=== PATIENT | male | born 1985 | race Two or more races ===

== ENCOUNTER 2022-10-08 21:00 | Inpatient (IN) | payer MEDICAID, OTHER ==
[~2022-10-08] VITALS: Ht 177.8 cm; Wt 80.9 kg
[2022-10-08 22:11] LABS: BASOPHILS % (AUTO) 0.3 % (0.0-2.0); EOSINOPHILS % (AUTO) 0.4 % (1.0-6.0); HEMATOCRIT 47.9 % (41-53); HEMOGLOBIN 16.2 g/dL (13.5-17.5); LYMPHOCYTES # (AUTO) 2.5 K/uL (1.0-4.8); LYMPHOCYTES % (AUTO) 24.9 % (22.0-44.0); MEAN CORPUSCULAR HEMOGLOBIN 31.3 pg (26.0-34.0); MEAN CORPUSCULAR VOLUME 92 fL (80-100); MONOCYTES # (AUTO) 0.6 K/uL (0.1-1.0); MONOCYTES % (AUTO) 5.9 % (2.0-9.0); NEUTROPHILS # (AUTO) 6.9 K/uL (1.8-7.7); NEUTROPHILS % (AUTO) 68.5 % (40.0-70.0); PLATELET COUNT (AUTO) 252 K/uL (150-450); RED BLOOD CELL COUNT(AUTO) 5.19 MIL/uL (4.50-5.90); RED CELL DISTRIBUTION WIDTH 12.9 % (11.5-14.5)
[2022-10-08 22:20] LABS: ANION GAP 10 mmol/L (8-16); CALCIUM, TOTAL 9.3 mg/dL (8.8-10.5); CARBON DIOXIDE 27 mmol/L (22-29); CHLORIDE 104 mmol/L (98-107); CREATININE 0.97 mg/dL (0.60-1.30); GLOMERULAR FILTR. RATE CALC > 60 mL/min (>60); GLUCOSE,RANDOM 105 mg/dL (70-110); POTASSIUM 3.6 mmol/L (3.5-5.1); SODIUM SERUM 141 mmol/L (136-145); UREA NITROGEN, BLOOD 13 mg/dL (7-18)
[2022-10-08 22:26] LABS: ALANINE AMINOTRANSFERASE 65 U/L (12-78); ALBUMIN 4.4 g/dL (3.4-5.0); ALKALINE PHOSPHATASE 100 U/L (46-116); ASPARTATE AMINOTRANSFERASE 33 U/L (15-37); BILIRUBIN,TOTAL 0.4 mg/dL (0.1-1.0); TOTAL PROTEIN, SERUM 7.9 g/dL (6.4-8.2)
[2022-10-08 22:45] LABS: COVID AG,FIA SOURCE NASAL SWAB
[2022-10-08] MEDS ORDERED: LORazepam 2 MG TABLET PO PRN (23:15)
[2022-10-08] MEDS ORDERED: HALOPERIDOL 5 MG TABLET PO PRN (23:15)
[2022-10-09 16:19] VITALS: BP 112/69
[2022-10-09] MEDS ORDERED: PNEUMOCOCCAL VACCINE POLYVALENT 0.5 ML VIAL [PPSV23] IM. ONE (16:30)
[2022-10-09] MEDS ORDERED: INFLUENZA VIRUS VACCINE QVS 2022-23 (6MO+)/PF 60 MCG/0.5 ML SYRINGE IM. ONE (16:30)
[2022-10-09 17:19] LABS: APPEARANCE,URINE CLEAR (CLEAR); BILIRUBIN,URINE NEGATIVE (NEGATIVE); GLUCOSE, URINE (UA) NEGATIVE (NEGATIVE); KETONES,URINE NEGATIVE (NEGATIVE); LEUKOCYTE ESTERASE ,URINE NEGATIVE (NEGATIVE); NITRATE,URINE NEGATIVE (NEGATIVE); OCCULT BLOOD,URINE NEGATIVE (NEGATIVE); PH,URINE 5.5 (5.0-8.0); PROTEIN,URINE 30-70 mg/dL (NEGATIVE); SPECIFIC GRAVITIY, URINE 1.034 (1.003-1.030); UROBILINOGEN,URINE <=1.0 mg/dL (<=1.0)
[2022-10-09 17:33] LABS: AMPHET/METH SCREEN,URINE NEGATIVE (NEGATIVE); BACTERIA,URINE None Seen /HPF (None Seen); BARBITURATE SCREEN, URINE NEGATIVE (NEGATIVE); BENZODIAZEPINES SCREEN,URINE NEGATIVE (NEGATIVE); CANNABINOID SCREEN,URINE NEGATIVE (NEGATIVE); COCAINE SCREEN,URINE NEGATIVE (NEGATIVE); HYALINE CASTS, URINE 0-2 /LPF (None Seen); METHADONE SCREEN, URINE NEGATIVE (NEGATIVE); OPIATE SCREEN,URINE NEGATIVE (NEGATIVE); RBC,URINE 0-2 /HPF (0-2); SQUAMOUS EPITHELIAL CELL,UR Few /LPF (None Seen); WBC,URINE 0-2 /HPF (0-5)
[2022-10-09 17:36] LABS: PHENCYCLIDINE SCREEN,URINE NEGATIVE (NEGATIVE)
[2022-10-09] MEDS ORDERED: INSULIN LISPRO 100 UNITS/ML SQ PRN (19:30)
[2022-10-09] MEDS ORDERED: DEXTROSE 50%-WATER 25 GM/50 ML SYRINGE IVP PRN (19:30)
[2022-10-09] MEDS ORDERED: INSULIN GLARGINE,HUM.REC.ANLOG 100 UNITS/ML SQ SCH (21:00)
[2022-10-10] MEDS ORDERED: LEVOTHYROXINE SODIUM 100 MCG TABLET PO SCH (07:00)
[2022-10-10] MEDS ORDERED: DOCUSATE SODIUM 100 MG CAPSULE PO PRN (07:00)
[2022-10-10] MEDS ORDERED: GuaiFENesin/D-METHORPHAN [SUGAR-FREE] 200-20MG/10 ML SYRUP UDCUP PO PRN (07:00)
[2022-10-10] MEDS ORDERED: ALBUTEROL SULFATE HFA 90 MCG/PUFF 8 GM INHALER IH PRN (07:00)
[2022-10-10] MEDS ORDERED: CloNIDine HCL 0.1 MG TABLET PO PRN (07:00)
[2022-10-10] MEDS ORDERED: ONDANSETRON HCL 4 MG TABLET PO PRN (07:00)
[2022-10-10] MEDS ORDERED: ACETAMINOPHEN 325 MG TABLET PO PRN (07:00)
[2022-10-10] MEDS ORDERED: MAGNESIUM HYDROXIDE SUSPENSION 30 ML UDCUP PO PRN (07:00)
[2022-10-10] MEDS ORDERED: LOPERAMIDE HCL 2 MG CAPSULE PO PRN (07:00)
[2022-10-10] MEDS ORDERED: MAG HYDROX/AL HYDROX/SIMETH ES 30 ML SUSPENSION UDCUP PO PRN (07:00)
[2022-10-10] MEDS ORDERED: IBUPROFEN 400 MG TABLET PO PRN (07:00)
[2022-10-10] MEDS ORDERED: PETROLATUM,WHITE 28 GM JELLY TP PRN (07:00)
[2022-10-10 09:00] VITALS: BP 106/56
[2022-10-10] MEDS ORDERED: LISINOPRIL 10 MG TABLET PO SCH (09:00)
[2022-10-10] MEDS ORDERED: OMEPRAZOLE 20 MG CAPSULE PO SCH (09:00)
[2022-10-10 16:31] VITALS: BP 110/65
[2022-10-10] MEDS: SERTRALINE HCL 50 MG TABLET PO SCH (17:51)
[2022-10-11 08:30] VITALS: BP 105/65
[2022-10-11] MEDS: SERTRALINE HCL 50 MG TABLET PO SCH (08:31)
[2022-10-11 17:00] VITALS: BP 118/57
[2022-10-12 08:00] VITALS: BP 93/64
[2022-10-12] MEDS: SERTRALINE HCL 50 MG TABLET PO SCH (10:14)
[2022-10-12 16:00] VITALS: BP 133/59
[2022-10-12] MEDS: NICOTINE 14 MG/24 HOUR PATCH TD PRN (17:44)
[2022-10-12] MEDS: ZOLPIDEM TARTRATE 10 MG TABLET PO PRN (20:19)
[2022-10-13 08:00] VITALS: BP 120/61
[2022-10-13] MEDS: SERTRALINE HCL 50 MG TABLET PO SCH (10:29)
[2022-10-13 16:14] VITALS: BP 125/63
[2022-10-13] MEDS: NICOTINE 14 MG/24 HOUR PATCH TD PRN (19:05)
[2022-10-13] MEDS: ZOLPIDEM TARTRATE 10 MG TABLET PO PRN (20:08)
[2022-10-14 07:23] LABS: COVID AG,FIA SOURCE NASAL SWAB
[2022-10-14] MEDS: SERTRALINE HCL 50 MG TABLET PO SCH (08:34)
[2022-10-14 08:39] VITALS: BP 121/63
[2022-10-14 16:19] VITALS: BP 130/81
[2022-10-14] MEDS: NICOTINE 14 MG/24 HOUR PATCH TD PRN (19:57)
[2022-10-14] MEDS: ZOLPIDEM TARTRATE 10 MG TABLET PO PRN (20:01)
[2022-10-14 20:19] VITALS: BP 125/78
[2022-10-15 08:00] VITALS: BP 115/56
[2022-10-15] MEDS: SERTRALINE HCL 50 MG TABLET PO SCH (10:17)
[2022-10-15 16:05] VITALS: BP 116/60
[2022-10-15 20:02] VITALS: BP 110/65
[2022-10-15] MEDS: ZOLPIDEM TARTRATE 10 MG TABLET PO PRN (20:12)
[2022-10-15] MEDS: NICOTINE 14 MG/24 HOUR PATCH TD PRN (20:22)
[2022-10-16 08:25] VITALS: BP 116/54
[2022-10-16] MEDS: SERTRALINE HCL 50 MG TABLET PO SCH (08:50)
[2022-10-16] MEDS ORDERED: SERT-439 PO (10:55)
== END 2022-10-16 16:36 | disposition home or self-care (01) | DRG 751 ==
LOC: EMS 21:02 → 3EI 10-09 14:10
PROVIDERS: ADMIT Psychiatry & Neurology Psychiatry; ATTEND Psychiatry & Neurology Psychiatry
DX: F33.2 Major depressive disorder, recurrent severe without psychotic features (principal); F15.10 Other stimulant abuse, uncomplicated; Z20.822 Contact with and (suspected) exposure to COVID-19; F43.12 Post-traumatic stress disorder, chronic; G47.00 Insomnia, unspecified; Z79.899 Other long term (current) drug therapy; Z59.00 Homelessness unspecified
CPT/HCPCS: 80053; 80307; 81001; 85025; 87081; 99285; G0480; J1815

== ENCOUNTER 2025-07-26 11:00 | Emergency (ER) | payer OTHER ==
[~2025-07-26] VITALS: Ht 177.8 cm; Wt 99.0 kg
[~2025-07-26 11:00] MED LIST: SERT-162 PO
[2025-07-26 11:16] VITALS: TEMP 97.5
[2025-07-26] MEDS ORDERED: ATOM25CA5 PO (12:44)
[2025-07-26] MEDS ORDERED: LISI30TA4 PO (12:44)
[2025-07-26] MEDS ORDERED: LIDO700A30 TP (12:44)
[2025-07-26] MEDS: KETOROLAC TROMETHAMINE 60 MG/2 ML VIAL IM ONE (12:48)
[2025-07-26] MEDS: OxyCODONE HCL/ACETAMINOPHEN 5-325 MG TABLET PO ONE (12:48)
[2025-07-26] MEDS: LIDOCAINE 5% TRANSDERMAL PATCH TD ONE (12:49)
[2025-07-26] MEDS ORDERED: LIDO-57 TP (13:19)
[2025-07-26] MEDS ORDERED: METH-659 PO (13:19)
[2025-07-26] MEDS ORDERED: IBUP-1492 PO (13:19)
[2025-07-26 13:23] VITALS: BP 121/76; PULSE 66; RESP 16; O2SAT 99
== END 2025-07-26 13:26 | disposition home or self-care (01) ==
LOC: EMS 11:30
DX: S39.012A Strain of muscle, fascia and tendon of lower back, initial encounter (principal); F32.A Depression, unspecified; Z79.899 Other long term (current) drug therapy; X58.XXXA Exposure to other specified factors, initial encounter; Y93.89 Activity, other specified; Y92.89 Other specified places as the place of occurrence of the external cause; Y99.0 Civilian activity done for income or pay
CPT/HCPCS: 99283; 96372; J1885

== ENCOUNTER 2025-07-28 08:38 | Emergency (ER) | payer OTHER ==
[~2025-07-28] VITALS: Ht 177.8 cm; Wt 100.0 kg
[~2025-07-28 08:38] MED LIST changes: +ATOM25CA5 PO; +IBUP-1492 PO; +LIDO-57 TP; +LIDO700A30 TP; +LISI30TA4 PO; +METH-659 PO; -SERT-162 PO
[2025-07-28 08:40] VITALS: TEMP 97.9
[2025-07-28] MEDS ORDERED: IBUP-1492 PO (08:52)
[2025-07-28] MEDS ORDERED: ACET-3385 PO (08:52)
[2025-07-28] MEDS: LIDOCAINE 5% TRANSDERMAL PATCH TD ONE (09:04)
[2025-07-28] MEDS: ACETAMINOPHEN 500 MG TABLET PO ONE (09:04)
[2025-07-28] MEDS: KETOROLAC TROMETHAMINE 30 MG/ML VIAL IM ONE (09:05)
[2025-07-28 09:55] VITALS: BP 124/89; PULSE 85; RESP 18; O2SAT 97
== END 2025-07-28 10:02 | disposition home or self-care (01) ==
LOC: EMS 08:45
DX: M54.16 Radiculopathy, lumbar region (principal); F32.A Depression, unspecified; Z79.1 Long term (current) use of non-steroidal anti-inflammatories (NSAID); Z79.899 Other long term (current) drug therapy
CPT/HCPCS: 99283; 96372; J1885

== ENCOUNTER 2025-07-30 20:28 | Emergency (ER) | payer OTHER ==
[~2025-07-30] VITALS: Ht 177.8 cm; Wt 100.0 kg
[~2025-07-30 20:28] MED LIST changes: +ACET-3385 PO
[2025-07-30 20:34] VITALS: TEMP 98.1
[2025-07-30] MEDS: KETOROLAC TROMETHAMINE 60 MG/2 ML VIAL IM ONE (21:42)
[2025-07-30] MEDS: OxyCODONE HCL/ACETAMINOPHEN 5-325 MG TABLET PO ONE (21:43)
[2025-07-30] MEDS ORDERED: PERCT PO (21:46)
[2025-07-30] MEDS ORDERED: METH-812 PO (21:46)
[2025-07-30] MEDS ORDERED: GABA-1181 PO (21:46)
[2025-07-30 22:05] VITALS: BP 141/76; PULSE 72; RESP 18; O2SAT 98
== END 2025-07-30 22:10 | disposition home or self-care (01) ==
LOC: EMS 20:28
DX: S39.012A Strain of muscle, fascia and tendon of lower back, initial encounter (principal); F32.A Depression, unspecified; Z98.890 Other specified postprocedural states; Z79.1 Long term (current) use of non-steroidal anti-inflammatories (NSAID); Z79.899 Other long term (current) drug therapy; X58.XXXA Exposure to other specified factors, initial encounter; Y93.89 Activity, other specified; Y92.69 Other specified industrial and construction area as the place of occurrence of the external cause; Y99.0 Civilian activity done for income or pay
CPT/HCPCS: 99283; 96372; J1885